=== PATIENT | female | born 2005 | race Caucasian/White ===

== ENCOUNTER 2025-05-16 14:23 | Emergency (ER) | payer OTHER | END 2025-05-16 16:38 | disposition home or self-care (01) | LOC: CSHERS 14:23 | DX: S80.11XA Contusion of right lower leg, initial encounter (principal); Z75.3 Unavailability and inaccessibility of health-care facilities; V47.5XXA Car driver injured in collision with fixed or stationary object in traffic accident, initial encounter; W22.11XA Striking against or struck by driver side automobile airbag, initial encounter; Y93.89 Activity, other specified | CPT/HCPCS: 70450 ==